=== PATIENT | male | born 1970 | race Asian ===

== ENCOUNTER 2019-01-04 19:31 | Emergency (ER) | payer OTHER ==
[~2019-01-04] VITALS: Ht 182.9 cm; Wt 88.5 kg
[2019-01-04 19:35] VITALS: BP_SYST 131
[2019-01-04] MEDS ORDERED: NACL 0.9% 1,000 ML IV ONE ×2 (21:15→22:00)
[2019-01-04] MEDS ORDERED: ACETAMINOPHEN 325 MG TABLET PO ONE (21:15)
[2019-01-04 21:41] LABS: BASOPHILS % (AUTO) 0.3 % (0.0-2.0); HEMATOCRIT 42.5 % (36-54); HEMOGLOBIN 14.7 g/dL (14.0-18.0); LYMPHOCYTES # (AUTO) 0.3 K/uL (1.0-5.5); LYMPHOCYTES % (AUTO) 4.6 % (20.5-51.5); MEAN CORPUSCULAR HEMOGLOBIN 31 pg (27-31); MEAN CORPUSCULAR HGB CONC 35 % (32-36); MEAN CORPUSCULAR VOLUME 90 fL (79.0-98.0); MONOCYTES # (AUTO) 0.3 K/uL (0.0-1.0); MONOCYTES % (AUTO) 4.5 % (1.7-9.3); NEUTROPHILS # (AUTO) 5.7 K/uL (1.8-7.7); NEUTROPHILS % (AUTO) 90.6 % (40.0-70.0); RED BLOOD CELL COUNT(AUTO) 4.75 MIL/uL (4.2-6.2); RED CELL DISTRIBUTION WIDTH 12.7 % (9.0-15.0); WHITE BLOOD COUNT (AUTO) 6.3 K/uL (4.8-10.8)
[2019-01-04 21:53] LABS: CALCIUM 8.9 mg/dL (8.4-11.0); CREATININE 1.04 mg/dL (0.55-1.30); POTASSIUM 3.4 mmol/L (3.5-5.1)
[2019-01-04 21:58] LABS: TOTAL BILIRUBIN 1.6 mg/dL (0.0-1.0)
[2019-01-04 21:59] LABS: PLATELET COUNT (AUTO) 77 K/uL (130-430)
[2019-01-04 22:26] LABS: PROTHROMBIN TIME 10.4 SECS (9.5-12.5)
[2019-01-04 22:52] LABS: BILIRUBIN,URINE 2+ (NEGATIVE); BLOOD, URINE NEGATIVE (NEGATIVE); CLARITY/URINE HAZY (CLEAR); COLOR,URINE ORANGE (YELLOW); GLUCOSE,URINE NEGATIVE (NEGATIVE); KETONES,URINE TRACE (NEGATIVE); LEUKOCYTE ESTERASE ,URINE NEGATIVE (NEGATIVE); NITRITE, URINE POSITIVE (NEGATIVE); PROTEIN URINE 2+ (NEGATIVE)
[2019-01-04 23:05] LABS: UROBILINOGEN,URINE >=8 (0.2-1.0)
[2019-01-04 23:32] LABS: BACTERIA,URINE FEW /HPF (None Seen); RBC,URINE 0-3 /HPF (0-3)
[2019-01-04 23:33] LABS: COARSE GRANULAR CASTS,URINE 0-10 /LPF (None Seen); MUCUS,URINE 3+ /LPF (None Seen)
[2019-01-05] MEDS ORDERED: CEPHALEXIN 500 MG CAPSULE PO ONE (00:15)
[2019-01-05 00:35] VITALS: BP_SYST 123
== END 2019-01-05 00:35 | disposition home or self-care (01) ==
LOC: SED 19:31
DX: K75.9 Inflammatory liver disease, unspecified (principal); B34.9 Viral infection, unspecified; R50.9 Fever, unspecified; R03.0 Elevated blood-pressure reading, without diagnosis of hypertension
CPT/HCPCS: 36415; 71045; 80053; 81000; 83605; 85025; 85610; 85651; 86140; 86710; 87040; 87086; 99284; J7030